=== PATIENT | male | born 1965 | race Caucasian/White ===

== ENCOUNTER 2022-09-03 13:47 | Inpatient (IN) | payer MEDICAID ==
[~2022-09-03] VITALS: Ht 175.3 cm; Wt 49.4 kg
--- NOTE | 2022-09-03 11:42 | NUR ---
MS INCOME TAX MANAGER NOTES RECEIVED PATIENT VIA GURNEY FROM ER AT 1142 ZIN TRANSFERRED THE PATIENT. PATIENT IS ALERT AND ORIENTED TIMES 1. HE KNOWS HIS NAME. NO PAIN NOTED. NO SOB NOTED. NO DISTRESS NOTED. NO BELONGING NOTED. IV ACCESS NOTED ON THE LEFT FOREARM G #18. OVERALL SKIN INTACT. NO OPEN SKIN NOTED. KEPT HOB ELEVATED FOR ASPIRATION PRECAUTION. PATIENTS TONGUE IS PROTRUDING OUT. MAKING HIM HARD TO SWALLOW. ALL NEEDS ATTENDED. ALL SAFETY MEASURES IN PLACE. BED LOCKED IN THE LOWEST POSITION. CALL LIGHT AND TABLE IN EASY REACH. SIDE RAILS UP TIMES 2. WILL CONTINUE TO MONITOR CLOSELY. Addendum: 09/04/22 at 0200 by JANETH CLARK RN RN NOTES WRONG TIME ENTRY. THE ADMISSION TIME WAS 2342 AT 09/03/22.
--- NOTE | 2022-09-03 13:50 | NUR ---
RECEIVED PT 57YRS MALE TRANSFER FROM SNF FOR POO INTACK NOT FALLOW ERYES OPEN
[2022-09-03] MEDS ORDERED: NA P133E RC (14:26)
[2022-09-03] MEDS ORDERED: THIA100T74 PO (14:26)
[2022-09-03] MEDS ORDERED: MEGE625O5 PO (14:26)
[2022-09-03] MEDS ORDERED: ATOR10TA PO (14:26)
[2022-09-03] MEDS ORDERED: CHOL100043 PO (14:26)
[2022-09-03] MEDS ORDERED: ACET-868 PO (14:26)
[2022-09-03] MEDS ORDERED: BISA10SU11 RC (14:26)
[2022-09-03] MEDS ORDERED: DOCU-141 PO (14:26)
[2022-09-03] MEDS ORDERED: TYL2T PO (14:26)
[2022-09-03] MEDS ORDERED: MAGN400O6 PO (14:26)
--- NOTE | 2022-09-03 14:30 | NUR ---
INSERTED ANGO CATHETER G 18 ON LT FOR ARM BLOOD DROW AND SENT TO LAB
--- NOTE | 2022-09-03 14:35 | NUR ---
SUAD FERRARA SENT TO LAB
[2022-09-03] MEDS ORDERED: IV NS 0.9% 1,000 ML BAG IV ONE (15:00)
[2022-09-03 15:17] LABS: BASOPHILS % (AUTO) 0.5 % (0.0-2.0); EOSINOPHILS % (AUTO) 3.7 % (0.0-6.0); HEMATOCRIT 42 % (39-51); LYMPHOCYTES # (AUTO) 1.2 K/uL (0.8-4.8); MEAN CORPUSCULAR HGB CONC 33 g/dl (31.0-36.0); MEAN CORPUSCULAR VOLUME 88 fL (80-96); MONOCYTES # (AUTO) 0.5 K/uL (0.1-1.30); NEUTROPHILS # (AUTO) 6.4 K/uL (1.8-8.9); NEUTROPHILS % (AUTO) 75.8 % (43.0-81.0); PLATELET COUNT (AUTO) 419 K/uL (150-450); RED BLOOD CELL COUNT(AUTO) 4.79 MIL/uL (4.5-6.0); WHITE BLOOD COUNT (AUTO) 8.4 K/uL (4.3-11.0)
--- NOTE | 2022-09-03 15:18 | NUR ---
RESSTING AND ASLEEPY NO DISTRESS
[2022-09-03 15:35] LABS: CALCIUM, SERUM 8.5 mg/dL (8.5-10.1); CARBON DIOXIDE 28 mmol/L (21-32); CHLORIDE 103 mmol/L (98-107); CREATININE 1.1 mg/dL (0.6-1.3); GLUCOSE 179 mg/dL (74-106); POTASSIUM 4.1 mmol/L (3.5-5.1); SODIUM SERUM 137 mmol/L (136-145); UREA NITROGEN, BLOOD 23 mg/dL (7-18)
[2022-09-03 15:41] LABS: ACETAMINOPHEN 0 ug/ml (10-30); ALANINE AMINOTRANSFERASE 21 U/L (12-78); ALBUMIN 2.8 g/dL (3.4-5.0); ALCOHOL, BLOOD < 3 mg/dL (0-0); ALKALINE PHOSPHATASE 89 U/L (46-116); ASPARTATE AMINOTRANSFERASE 11 U/L (15-37); BILIRUBIN,DIRECT 0.1 mg/dL (0.0-0.2); BILIRUBIN,TOTAL 0.2 mg/dL (0.2-1.0); TOTAL PROTEIN, SERUM 6.5 g/dL (6.4-8.2)
--- NOTE | 2022-09-03 16:20 | NUR ---
IVF INFUSED AND PATENT
--- NOTE | 2022-09-03 17:18 | NUR ---
UA SENT TO LAB
[2022-09-03 17:40] LABS: BILIRUBIN,URINE NEGATIVE (NEGATIVE); COLOR,URINE YELLOW (YELLOW); LEUKOCYTE ESTERASE ,URINE NEGATIVE (NEGATIVE); NITRITE, URINE NEGATIVE (NEGATIVE); PROTEIN,URINE NEGATIVE (NEGATIVE); UGLUCOSE NEGATIVE (NEGATIVE); UROBILINOGEN,URINE 0.2 EU/dL (0.2)
--- NOTE | 2022-09-03 17:52 | NUR ---
PT SWALLOW NO DIFFECULTY
--- NOTE | 2022-09-03 19:32 | NUR ---
HAND OFF CORY RN
[2022-09-03] MEDS ORDERED: ACETAMINOPHEN 325 MG TABLET PO PRN (22:00)
[2022-09-03] MEDS: DOCUSATE SODIUM 100 MG CAPSULE PO SCH (22:00)
[2022-09-03] MEDS: ATORVASTATIN 10 MG TABLET PO SCH (22:00)
[2022-09-03] MEDS ORDERED: ONDANSETRON HCL/PF 4 MG/2 ML VIAL IVP PRN (22:00)
--- NOTE | 2022-09-03 23:16 | NUR ---
REPORT GIVEN TO MAGO JO FOR [place]
[2022-09-03 23:40] VITALS: BP 129/82
[2022-09-04] MEDS: IV NS 0.9% 1,000 ML IV PRN ×2 (00:19→19:32)
[2022-09-04 06:34] LABS: CALCIUM, SERUM 8.7 mg/dL (8.5-10.1); CREATININE 0.8 mg/dL (0.6-1.3); MAGNESIUM 2.1 mg/dL (1.8-2.4); POTASSIUM 3.9 mmol/L (3.5-5.1)
--- NOTE | 2022-09-04 06:51 | NUR ---
MS RN CLOSING NOTES PATIENT AWAKE IN BED. PATIENT IS ALERT AND ORIENTED TIMES 1. HE KNOWS HIS NAME. NO PAIN NOTED. NO SOB NOTED. NO DISTRESS NOTED. IV ACCESS NOTED ON THE RIGHT FOREARM G #20 INTACT RUNNING NS AT 75 ML/HR. OVERALL SKIN INTACT. NO OPEN SKIN NOTED. KEPT HOB ELEVATED FOR ASPIRATION PRECAUTION. PATIENTS TONGUE IS PROTRUDING OUT. MAKING HIM HARD TO SWALLOW. WILL HAVE SWALLOW EVAL THIS MORNING. ALL NEEDS ATTENDED. ALL SAFETY MEASURES IN PLACE. BED LOCKED IN THE LOWEST POSITION. CALL LIGHT AND TABLE IN EASY REACH. SIDE RAILS UP TIMES 2. WILL ENDORSE FOR [place]..
[2022-09-04 07:38] LABS: BASOPHILS % (AUTO) 0.5 % (0.0-2.0); HEMATOCRIT 40 % (39-51); HEMOGLOBIN 13.1 g/dL (13.5-17.5); LYMPHOCYTES # (AUTO) 1.9 K/uL (0.8-4.8); MEAN CORPUSCULAR HGB CONC 33 g/dl (31.0-36.0); MEAN CORPUSCULAR VOLUME 89 fL (80-96); MONOCYTES # (AUTO) 0.6 K/uL (0.1-1.30); MONOCYTES % (AUTO) 5.8 % (2.0-12.0); NEUTROPHILS # (AUTO) 7.1 K/uL (1.8-8.9); NEUTROPHILS % (AUTO) 72.7 % (43.0-81.0); PLATELET COUNT (AUTO) 410 K/uL (150-450); RED BLOOD CELL COUNT(AUTO) 4.55 MIL/uL (4.5-6.0); WHITE BLOOD COUNT (AUTO) 9.8 K/uL (4.3-11.0)
[2022-09-04 08:00] VITALS: BP 137/94
[2022-09-04] MEDS: CHOLECALCIFEROL (VITAMIN D 3) 400 UNIT TABLET PO SCH (08:55)
[2022-09-04] MEDS: MEGESTROL ACETATE SUSP 400 MG/10 ML UDC PO SCH ×2 (08:55→16:52)
[2022-09-04] MEDS: THIAMINE HCL 100 MG TABLET PO SCH (08:55)
[2022-09-04] MEDS: ENSURE ENLIVE CHOC 237 ML CAN PO SCH (16:52)
--- NOTE | 2022-09-04 19:15 | NUR ---
MS RN OPENING NOTES RECEIVED PT AWAKE IN BED AT THIS TIME. A/O X 1, ORIENTED TO NAME. ON RA WITH NO SOB OR DISTRESS NOTED. IV RIGHT FOREARM G #20 INTACT AND PATENT, RUNNING NS AT 75 ML/HR. OVERALL SKIN INTACT. NO OPEN SKIN NOTED. KEPT HOB ELEVATED FOR ASPIRATION PRECAUTIONS. ALL SAFETY MEASURES IN PLACE: BED LOCKED IN THE LOWEST POSITION, CALL LIGHT AND TABLE WITHIN REACH, SIDE RAILS UP X2. WILL CONTINUE TO MONITOR AND ASSIST.
[2022-09-04 20:00] VITALS: BP 115/74
[2022-09-04] MEDS: ATORVASTATIN 10 MG TABLET PO SCH (21:53)
[2022-09-04] MEDS: DOCUSATE SODIUM 100 MG CAPSULE PO SCH (21:53)
--- NOTE | 2022-09-04 21:54 | NUR ---
RN NOTE PT REFUSED LIPITOR AND COLACE MEDICATIONS FOR 2200. PT KEPT SHAKING HEAD SIDE TO SIDE. WILL CONTINUE TO MONITOR.
--- NOTE | 2022-09-05 06:46 | NUR ---
MS RN CLOSING NOTES PT AWAKE IN BED AT THIS TIME. A/O X 1, ORIENTED TO NAME, NODS/SHAKES HEAD RESPONSE. STABLE ON RA WITH NO SOB OR DISTRESS NOTED. IV RFA #20G INTACT AND PATENT, RUNNING 0.9% NS AT 75 ML/HR. OVERALL SKIN INTACT. NO OPEN SKIN NOTED. KEPT HOB ELEVATED FOR ASPIRATION PRECAUTIONS. ALL CARE PROVIDED AND ADMINISTERED MEDICATIONS TOLERATED WELL. SAFETY MEASURES MAINTAINED: BED LOCKED IN THE LOWEST POSITION, CALL LIGHT AND TABLE WITHIN REACH, SIDE RAILS UP X3. WILL ENDORSE [place] TO DAY SHIFT NURSE.
[2022-09-05 07:00] VITALS: BP 119/85
--- NOTE | 2022-09-05 07:45 | NUR ---
MS JO OPENING NOTES: RECEIVED PT AWAKE IN BED, A/O X 1, ORIENTED TO NAME, NODS/SHAKES HEAD RESPONSE. STABLE ON RA WITH NO S/S OF SOB AND ACUTE DISTRESS NOTED. NO IV ACCESS AT THIS TIME, PT PULLED IT OUT DURING CHANGE OF SHIFT, WILL REINSERT. SAFETY MEASURES MAINTAINED: BED LOCKED IN LOWEST POSITION, CALL LIGHT AND TABLE WITHIN REACH, SIDE RAILS UP X3. WILL ENDORSE [place] TO DAY S Addendum: 09/05/22 at 1628 by MARIO ALBERTO BARROSO RN WILL CONT WITH PLAN OF CARE DURING SHIFT.
[2022-09-05] MEDS: CHOLECALCIFEROL (VITAMIN D 3) 400 UNIT TABLET PO SCH (09:44)
[2022-09-05] MEDS: THIAMINE HCL 100 MG TABLET PO SCH (09:44)
[2022-09-05] MEDS: MEGESTROL ACETATE SUSP 400 MG/10 ML UDC PO SCH ×2 (09:44→16:17)
[2022-09-05] MEDS: ENSURE ENLIVE CHOC 237 ML CAN PO SCH ×3 (09:44→16:23)
[2022-09-05] MEDS ORDERED: LORAZEPAM 1 MG TABLET PO PRN (11:30)
[2022-09-05] MEDS ORDERED: BENZTROPINE MESYLATE (1 MG) 1 MG TABLET PO PRN (11:30)
[2022-09-05] MEDS: IV NS 0.9% 1,000 ML IV PRN (14:09)
[2022-09-05 16:00] VITALS: BP 134/91
--- NOTE | 2022-09-05 18:44 | NUR ---
MS RN CLOSING NOTES: PT AWAKE IN BED, A/O X 1, ORIENTED TO NAME, NODS/SHAKES HEAD RESPONSE. STABLE ON RA WITH NO S/S OF SOB AND ACUTE DISTRESS NOTED. NEW IV ACCESS AT R UA #20, RUNNING NS @ 75ML/HR. DUE MEDS GIVEN, KEPT PT CLEAN, DRY AND COMFORTABLE. SAFETY MEASURES MAINTAINED: BED LOCKED IN LOWEST POSITION, CALL LIGHT AND TABLE WITHIN REACH, SIDE RAILS UP X3, WILL ENDORSE TO PM SHIFT FOR [place].
--- NOTE | 2022-09-05 19:15 | NUR ---
MS RN OPENING NOTES RECEIVED PT AWAKE IN BED AT THIS TIME. A/O X 1, ORIENTED TO NAME. ON RA WITH NO SOB OR DISTRESS NOTED. IV TIP G #20 INTACT AND PATENT, RUNNING NS @ 75 ML/HR. OVERALL SKIN INTACT. NO OPEN SKIN NOTED. KEPT HOB ELEVATED FOR ASPIRATION PRECAUTIONS. ALL SAFETY MEASURES IN PLACE: BED LOCKED IN THE LOWEST POSITION, CALL LIGHT AND TABLE WITHIN REACH, SIDE RAILS UP X2. WILL CONTINUE TO MONITOR AND ASSIST.
[2022-09-05 20:00] VITALS: BP 131/89
[2022-09-05] MEDS: DOCUSATE SODIUM 100 MG CAPSULE PO SCH (21:53)
[2022-09-05] MEDS: ATORVASTATIN 10 MG TABLET PO SCH (21:53)
[2022-09-06] MEDS: IV NS 0.9% 1,000 ML IV PRN ×2 (04:36→17:49)
[2022-09-06 07:00] VITALS: BP 97/61
--- NOTE | 2022-09-06 07:04 | NUR ---
MS RN CLOSING NOTES PT AWAKE IN BED AT THIS TIME. A/O X 1, ORIENTED TO NAME, NODS/SHAKES HEAD RESPONSE. STABLE ON RA WITH NO SOB OR DISTRESS NOTED. IV TIP #20G INTACT AND PATENT, RUNNING 0.9% NS AT 75 ML/HR. OVERALL SKIN INTACT. NO OPEN SKIN NOTED. KEPT HOB ELEVATED FOR ASPIRATION PRECAUTIONS. ALL CARE PROVIDED AND ADMINISTERED MEDICATIONS TOLERATED WELL. SAFETY MEASURES MAINTAINED: BED LOCKED IN THE LOWEST POSITION, CALL LIGHT AND TABLE WITHIN REACH, SIDE RAILS UP X3. WILL ENDORSE [place] TO DAY SHIFT NURSE.
--- NOTE | 2022-09-06 07:40 | NUR ---
MS RN OPENING NOTES: RECEIVED PT AWAKE IN BED, A/O X 1, ORIENTED TO NAME, NODS/SHAKES HEAD RESPONSE. STABLE ON RA WITH NO S/S OF SOB AND ACUTE DISTRESS NOTED. NO PAIN AND DISCOMFORT NOTED, IV ACCESS ON TIP #20 G WITH NS @75ML /HOUR . SAFETY MEASURES MAINTAINED: BED LOCKED IN LOWEST POSITION, CALL LIGHT AND TABLE WITHIN REACH, SIDE RAILS UP X3. WILL CONTINUE TO MONITOR FOR ANY CHANGES
[2022-09-06] MEDS: CHOLECALCIFEROL (VITAMIN D 3) 400 UNIT TABLET PO SCH (08:55)
[2022-09-06] MEDS: THIAMINE HCL 100 MG TABLET PO SCH (08:55)
[2022-09-06] MEDS: MEGESTROL ACETATE SUSP 400 MG/10 ML UDC PO SCH ×2 (08:55→17:28)
[2022-09-06] MEDS: ENSURE ENLIVE CHOC 237 ML CAN PO SCH ×3 (08:56→17:29)
--- NOTE | 2022-09-06 19:11 | NUR ---
MS RN CLOSING NOTES: PT AWAKE IN BED, A/O X 1, ORIENTED TO NAME, NODS/SHAKES HEAD RESPONSE. STABLE ON RA WITH NO S/S OF SOB AND ACUTE DISTRESS NOTED. NO PAIN AND DISCOMFORT NOTED, IV ACCESS ON TIP #20 G WITH NS @75ML /HOUR . ALL DUE MEDS ORDERED , WITH GOOD PO INTAKE , SAFETY MEASURES MAINTAINED: BED LOCKED IN LOWEST POSITION, CALL LIGHT AND TABLE WITHIN REACH, SIDE RAILS UP X3. ENDORSED TO NEXT SHIFT
--- NOTE | 2022-09-06 19:30 | NUR ---
MS RN OPENING NOTE RECEIVED PATIENT IN BED, WITH HOB ELEVATED, ALERT AND ORIENTED TO SELF. AFEBRILE AND NOT IN ANY FORM OF ACUTE DISTRESS. BREATHING EVEN AND NON LABORED. NO C/O PAIN OR DISCOMFORT AT THIS TIME. WITH IV ACCESS ON TIP 20G RUNNING WITH NS AT 75ML/HR. SAFETY MEASURES IN PLACE. KEPT BED IN LOCKED AND IN LOW POSITION. SIDE RAILS UP X2. CALL LIGHT WITHIN EASY REACH.
[2022-09-06 20:00] VITALS: BP 113/73
[2022-09-06] MEDS: DOCUSATE SODIUM 100 MG CAPSULE PO SCH (21:10)
[2022-09-06] MEDS: ATORVASTATIN 10 MG TABLET PO SCH (21:10)
[2022-09-07] MEDS: IV NS 0.9% 1,000 ML IV PRN (05:37)
--- NOTE | 2022-09-07 06:30 | NUR ---
MS RN CLOSING NOTE PATIENT IN BED, WITH HOB ELEVATED, ALERT AND ORIENTED TO SELF WITH CONFUSION. AFEBRILE AND NOT IN ANY FORM OF ACUTE DISTRESS. BREATHING EVEN AND NON LABORED. NO C/O PAIN OR DISCOMFORT THROUGHOUT THE SHIFT. WITH IV ACCESS ON TIP 20G RUNNING WITH NS AT 75ML/HR. MEDICATED ORDERED. OFFERED AND ENCOURAGED FLUIDS TOLERATED. TURNED AND REPOSITIONED EVERY 2 HOURS AND TOLERATED TO PROMOTE PROPER CIRCULATION AND COMFORT. SAFETY MEASURES IN PLACE. KEPT BED IN LOCKED AND IN LOW POSITION. SIDE RAILS UP X2. CALL LIGHT WITHIN EASY REACH. ALL NURSING NEEDS ATTENDED. ENDORSED TO INCOMING SHIFT FOR CONTINUITY OF CARE.
[2022-09-07 08:00] VITALS: BP 140/83
[2022-09-07] MEDS: ENSURE ENLIVE CHOC 237 ML CAN PO SCH ×3 (08:22→17:15)
[2022-09-07] MEDS: MEGESTROL ACETATE SUSP 400 MG/10 ML UDC PO SCH ×2 (09:50→16:07)
[2022-09-07] MEDS: CHOLECALCIFEROL (VITAMIN D 3) 400 UNIT TABLET PO SCH (09:50)
[2022-09-07] MEDS: THIAMINE HCL 100 MG TABLET PO SCH (09:50)
[2022-09-07] MEDS ORDERED: LACT-54 PO (13:23)
[2022-09-07] MEDS ORDERED: BENZ1TAB7 PO (13:23)
[2022-09-07] MEDS: BENZTROPINE MESYLATE (1 MG) 1 MG TABLET PO SCH ×2 (13:45→16:07)
[2022-09-07 16:15] VITALS: BP 110/69
--- NOTE | 2022-09-07 19:19 | NUR ---
MS TIP MENDER NOTES: PT AWAKE IN BED, A/O X 1, ORIENTED TO NAME, NODS/SHAKES HEAD RESPONSE. STABLE ON RA WITH NO S/S OF SOB AND ACUTE DISTRESS NOTED. NO PAIN AND DISCOMFORT NOTED, ALL DUE MEDS ORDERED , PATIENT WAS SEEN BY JESU CANTU AND WITH ORDER FOR DISCHARGE , DISCHARGE PAPERS WERE PREPARED AND COVID RAPID WAS ORDERED , NO BELONGINGS UPON ADMISSION , PATIENT UNABLE TO SIGN AND SIGNED BY TWO NURSES, COVID RESULT WAS NEGATIVE , REPORT GIVEN TO MICHELLE Knight LVN AND AMBULANCE CAME AROUND 185 IV ACCESS WAS REMOVED Addendum: 09/07/22 at 1925 by ODIN SPARKS RN CONT . AND PT WITH NO C/O OF PAIN AND DISCOMFORT , NO SOB . V/S WITHIN NORMAL LIMITS AND DISCHARGE INSTRUCTIONS WAS SIGNED BY TWO NURSES .
== END 2022-09-07 13:23 | DRG 421 ==
LOC: ER 13:50 → MED 23:10 → UNDODISIN 09-08
PROVIDERS: ADMIT Nurse Practitioner Acute Care; ATTEND Nurse Practitioner Acute Care
DX: R62.7 Adult failure to thrive (principal); R64 Cachexia; N17.9 Acute kidney failure, unspecified; E44.0 Moderate protein-calorie malnutrition; D68.59 Other primary thrombophilia; E88.09 Other disorders of plasma-protein metabolism, not elsewhere classified; Z68.1 Body mass index [BMI] 19.9 or less, adult; E78.5 Hyperlipidemia, unspecified; R53.1 Weakness; F32.A Depression, unspecified; F41.9 Anxiety disorder, unspecified; G24.01 Drug induced subacute dyskinesia
CPT/HCPCS: 36415; 71045-TC; 80048-TC; 80076-TC; 83735-TC; 84100-TC; 85025-TC; 87081-TC; 92526; 92611-TC; 97112-TC; 97116-TC; 97530-TC; C9803; G0378; G0480; J7030